=== PATIENT | female | born 1960 | race Caucasian/White ===

== ENCOUNTER 2021-02-25 06:09 | Emergency (ER) | payer BC ==
[~2021-02-25] VITALS: Ht 170.2 cm; Wt 70.2 kg
[2021-02-25 06:14] VITALS: BP 147/107
[2021-02-25] MEDS ORDERED: TRIA15OI TP (06:48)
--- NOTE | 2021-02-25 06:48 | PHYS DOC ---
Past History Past Medical History: Hypothyroid, Other Additional Past Medical Histor: PTSD Past Surgical History: Tonsillectomy, Other Additional Past Surgical Histo: ectopic pregnancyx2 Alcohol Use: Occasionally General Adult EDM: Chief Complaint: BREAST PROBLEM HPI: HPI: 60-year-old female presents with rash around her left nipple. The patient has had this for 2 to 3 weeks. The rash is erythematous and raised with a scaly border. It is pruritic at times but not always. She has tried Benadryl topical cream and then 4 days of anti-fungal cream. Neither of these have helped. Her father is a physician and just answered her email from 3 weeks ago and told her to get evaluated as soon as possible. That is why the patient came into the emergency room. She has not had a mammogram in the last 2 years due to COVID- 19. The rash only affects the left breast. She has no other complaints this time. Review of Systems: Review of Systems: Constitutional: Denies fever or chills Eyes: Denies change in visual acuity HENT: Denies nasal congestion or sore throat Respiratory: Denies cough or shortness of breath Cardiovascular: Denies chest pain or edema GI: Denies abdominal pain, nausea, vomiting, bloody stools or diarrhea : Denies dysuria Musculoskeletal: Denies back pain or joint pain Integument: Left breast rash Neurologic: Denies headache, focal weakness or sensory changes Endocrine: Denies polyuria or polydipsia Lymphatic: Denies swollen glands Psychiatric: Denies depression or anxiety Allergies: Allergies: Allergies Coded Allergies Type Severity Reaction Last Updated Verified Unable to Assess 02/25/21 No Physical Exam: PE: Constitutional: Well developed, well nourished, no acute distress, non-toxic appearance. [] HENT: Normocephalic, atraumatic, bilateral external ears normal, oropharynx moist, no oral exudates, nose normal. [] Eyes: PERRLA, EOMI, conjunctiva normal, no discharge. [] Neck: Normal range of motion, no tenderness, supple, no stridor. [] Cardiovascular:Heart rate regular rhythm, no murmur [] Lungs & Thorax: Bilateral breath sounds clear to auscultation [] Abdomen: Bowel sounds normal, soft, no tenderness, no masses, no pulsatile masses. [] Skin: Erythematous papules around the inferior left nipple 2 mm x 4 mm each with burning and mild scaliness. No signs of abscess. Not warm to the touch. [] Back: No tenderness, no CVA tenderness. [] Extremities: No tenderness, no cyanosis, no clubbing, ROM intact, no edema. [] Neurologic: Alert and oriented X 3, normal motor function, normal sensory function, no focal deficits noted. [] Psychologic: Affect normal, judgement normal, mood normal. [] Current Patient Data: Vital Signs: Vital Signs Date Time Temp Pulse Resp B/P (MAP) Pulse Ox O2 Delivery O2 Flow Rate FiO2 02/25/21 06:14 98.4 99 18 147/107 (120) 100 Room Air EKG: EKG: [] Radiology/Procedures: Radiology/Procedures: [] Heart Score: C/O Chest Pain: N/A Risk Factors: Risk Factors: DM, Current or recent (<one month) smoker, HTN, HLP, family history of CAD, obesity. Risk Scores: Score 0 - 3: 2.5% MACE over next 6 weeks - Discharge Home Score 4 - 6: 20.3% MACE over next 6 weeks - Admit for Clinical Observation Score 7 - 10: 72.7% MACE over next 6 weeks - Early Invasive Strategies Course & Med Decision Making: Course & Med Decision Making Pertinent Labs and Imaging studies reviewed. (See chart for details) I am not exactly sure what this rash is. I believe would be reasonable to try topical steroid. I will prescribe triamcinolone 0.1%. I have also advised that she follow-up with [facility] and/or dermatology. She is stable for discharge at this time. [] Mynor Disclaimer: Mynor Disclaimer: This electronic medical record was generated, in whole or in part, using a voice recognition dictation system. Departure Departure: Impression: Primary Impression: Rash and nonspecific skin eruption Disposition: HOME / SELF CARE / HOMELESS Condition: STABLE Referrals: PCP,UNKNOWN (PCP) Patient Instructions: Rash Scripts Triamcinolone Acetonide (TRIAMCINOLONE ACETONIDE 0.1% OINT) 15 Gm Oint...g. 1 CORRY TP BID for rash, #1 EACH Prov: DIANNA OLIVO DO 02/25/21 DIANNA OLIVO DO Feb 25, 2021 06:48
== END 2021-02-25 06:45 | disposition home or self-care (01) ==
LOC: ER 06:09
DX: R21 Rash and other nonspecific skin eruption (principal); L53.8 Other specified erythematous conditions; L29.9 Pruritus, unspecified; E03.9 Hypothyroidism, unspecified; F43.10 Post-traumatic stress disorder, unspecified
CPT/HCPCS: 99283